=== PATIENT | male | born 1975 | race African-American/Black ===

== ENCOUNTER 2018-08-03 08:21 | Outpatient (CLI) | payer BC | END 2018-08-03 08:22 | disposition home or self-care (01) | LOC: LABBT 08:21 | PROVIDERS: ATTEND Neurological Surgery | DX: Z01.810 Encounter for preprocedural cardiovascular examination (principal); M54.16 Radiculopathy, lumbar region | CPT/HCPCS: 93005; 93010 ==

== ENCOUNTER 2018-08-10 05:49 | Day surgery (SDC) | payer BC ==
[2018-08-03 08:44] VITALS: BMI 26.9
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
[2018-08-10] MEDS ORDERED: Thrombin 5000 UNITS/5 ML VIAL ONE (06:18)
[2018-08-10] MEDS ORDERED: Bupivacaine HCl 0.5%/Epinephrine 1:200,000/PF 30 ml Vial ONE (06:18)
[2018-08-10] MEDS ORDERED: CEFAZOLIN 2 GM/50 ML BAG ONE ×2 (06:25→11:23)
[2018-08-10] MEDS ORDERED: Midazolam HCl 2 mg/2 ml Vial ONE (06:26)
[2018-08-10] MEDS ORDERED: Fentanyl 100 MCG/2 ML VIAL ONE ×3 (06:47→08:52)
[2018-08-10] MEDS ORDERED: SUGAMMADEX SODIUM 200 MG/2 ML VIAL ONE (08:25)
[2018-08-10] MEDS ORDERED: Tamsulosin HCl 0.4 MG CAP ONE (08:28)
[2018-08-10] MEDS ORDERED: Meperidine HCl/PF 25 MG/ML VIAL ONE (08:40)
[2018-08-10] MEDS ORDERED: Glycopyrrolate 0.2 MG/ML 5 ML SYRINGE ONE (09:45)
[2018-08-10] MEDS ORDERED: Dexamethasone 20 MG/5 ML VIAL ONE (09:45)
[2018-08-10] MEDS ORDERED: Ketorolac Tromethamine 30 MG/ML VIAL ONE (09:45)
[2018-08-10] MEDS ORDERED: Ondansetron PF 4 MG/2 ML Vial ONE (09:45)
[2018-08-10] MEDS ORDERED: PROPOFOL 200 MG/20 ML VIAL ONE (09:45)
[2018-08-10] MEDS ORDERED: Lidocaine 1% PF 5 ML VIAL ONE (09:45)
[2018-08-10] MEDS ORDERED: PROVENTIL INHALER 6.7 G (200 INHALATIONS) ONE (09:45)
[2018-08-10] MEDS ORDERED: HYDROcodone/Acetaminophen 5/325 mg Tablet ONE (11:48)
--- NOTE | 2018-08-10 15:41 | OP ---
DATE OF PROCEDURE: 08/10/2018 TIME CYCLE OPERATOR: Leonel David PA-C. INDICATION: Pain. DIAGNOSIS: Bilateral L5 radiculopathies. PROCEDURES: Bilateral L5 hemilaminectomy, medial facetectomies, and foraminotomies. ANESTHESIA: General. TECHNIQUE: The patient was brought into the operating room and placed under general anesthesia. He was flipped from the supine to the prone position on the operating room table. An incision was planned at the L5 segment. After prepping and draping and after a preoperative pause, the incision was created. The soft tissues were swept away from midline. Self-retaining retractors were placed for optimal exposure. After confirming the appropriate level on C-arm fluoroscopy, high speed cutting drill bit as well as 2, 3, and 4 mm Kerrison's were used to perform hemilaminectomies along the inferior aspect of L5 bilaterally. The L5 and S1 pedicles were identified. Foraminotomies were performed of the exiting L5 nerve roots bilaterally. There was more motion at the L5-S1 segment than I had expected. The wound was irrigated. Hemostasis was maintained throughout. The wound was then closed in anatomic layers and a pressure dressing was applied. There were no known procedural complications. Job ID: [id number] [facility]
== END 2018-08-10 12:45 | disposition home or self-care (01) ==
LOC: SDC 05:49
PROVIDERS: ATTEND Neurological Surgery
PROC: 01NB0ZZ Release Lumbar Nerve, Open Approach (ICD-10-PCS; principal; 2018-08-10)
DX: S33.39XA Dislocation of other parts of lumbar spine and pelvis, initial encounter (principal); M48.061 Spinal stenosis, lumbar region without neurogenic claudication; M54.16 Radiculopathy, lumbar region; Z91.013 Allergy to seafood; Z91.041 Radiographic dye allergy status; V89.2XXA Person injured in unspecified motor-vehicle accident, traffic, initial encounter
CPT/HCPCS: 76001; 96374; 96375; J0131; J0670; J1100; J1885; J2001; J2175; J2250; J2405; J2704; J3010

== ENCOUNTER 2018-09-01 17:56 | Emergency (ER) | payer BC, OTHER ==
[2018-09-01 18:39] LABS: #Basophils 0.1 thou/uL (0.0-0.2); #Eosinphils 0.2 thou/uL (0.0-0.7); #Lymphocytes 3.3 thou/uL (1.20-3.40); #Monocytes 0.6 thou/uL (0.11-0.59); %Basophils 1.1 % (0.0-1.0); %Eosinophils 2.7 % (0.0-10.0); %Lymphocytes 46.4 % (21.0-51.0); %Monocytes 7.8 % (0.0-10.0); %Neutrophils 42.1 % (42.0-75.0); Hemoglobin 14.9 g/dL (14.0-18.0); Mean Corpuscular HGB CONC 34.4 g/dL (32.0-36.0); Mean Corpuscular Hemoglobin 33.8 pg (27.0-31.0); Mean Corpuscular Volume 98.3 fL (78.0-98.0); Mean Platelet Volume 7.4 fL (7.4-10.4); Platelet Count 266 thou/uL (130-400); RBC Distribution Width 11.7 % (11.5-14.5); White Blood Cell (WBC) Count 7.1 thou/uL (4.8-10.8)
[2018-09-01 19:02] LABS: ALT (SGPT) 28 U/L (8-55); AST (SGOT) 17 U/L (5-34); Alkaline Phosphatase 92 U/L (40-150); Anion Gap 12 mmol/L (10-20); BUN (Urea Nitrogen) 13 mg/dL (8.9-20.6); Bilirubin, Total 0.2 mg/dL (0.2-1.2); Calc. Creatinine Clearance 0 mL/min (70-130); Calcium 9.2 mg/dL (7.8-10.44); Carbon Dioxide 23 mmol/L (22-29); Chloride 106 mmol/L (98-107); Estimated GFR-MDRD 76; Globulin 3.8 g/dL (2.4-3.5); Glucose 98 mg/dL (70-105); Lipase 35 U/L (8-78); Potassium 4.3 mmol/L (3.5-5.1); Protein, Total 7.8 g/dL (6.0-8.3); Sodium 137 mmol/L (136-145)
[2018-09-01 20:08] LABS: Bilirubin Negative (Negative); Blood, Urine Negative (Negative); Clarity CLEAR (Clear); Glucose, Urine (Dipstick) Negative (Negative); Leukocyte Negative (Negative); Nitrite Negative (Negative); Protein, Urine (Dipstick) Negative (Neg-Trace); Specific Gravity, Urine 1.024 (1.002-1.036); pH, Urine 6.5 (5.0-9.0)
[2018-09-01] MEDS ORDERED: Dexamethasone 10 MG/ML VIAL ONE (20:14)
[2018-09-01] MEDS ORDERED: Ketorolac Tromethamine 60 MG/2 ML VIAL ONE (20:14)
== END 2018-09-01 20:45 | disposition home or self-care (01) ==
LOC: ERS 17:56
DX: M54.5 Low back pain (principal); F17.210 Nicotine dependence, cigarettes, uncomplicated
CPT/HCPCS: 36415; 80053; 81003; 83690; 85025; 96372; J1100; J1885

== ENCOUNTER 2020-01-25 14:56 | Emergency (ER) | payer BC, OTHER, SELFPAY ==
--- NOTE | 2020-01-25 16:10 | RAD ---
Chest 2 views HISTORY: Fever. Weakness. FINDINGS: Cardiac silhouette and pulmonary vasculature are unremarkable. Mediastinum is midline. No confluent airspace consolidation, pneumothorax, or pleural fluid. IMPRESSION : No active cardiopulmonary abnormalities are demonstrated.
[2020-01-25 16:45] LABS: Hemoglobin 17.2 g/dL (14.0-18.0); Mean Corpuscular HGB CONC 32.8 g/dL (32.0-36.0); Mean Corpuscular Hemoglobin 32.8 pg (27.0-31.0); Mean Platelet Volume 7.8 fL (7.4-10.4); Platelet Count 266 thou/uL (130-400); Red Blood Cell (RBC) Count 5.26 mill/uL (4.70-6.10); White Blood Cell (WBC) Count 6.3 thou/uL (4.8-10.8)
[2020-01-25 17:00] LABS: Eosinophils 3 % (0-10); Lymphocytes 52 % (21-51); MDiff Complete? YES; Monocytes 8 % (0-10); Neutrophil 36 % (42-75); Platelet Morphology Comment Appears Adequate; RBC Morphology Normal
[2020-01-25 17:05] LABS: Bilirubin, Total 0.4 mg/dL (0.2-1.2)
[2020-01-25 17:07] LABS: ALT (SGPT) 23 U/L (8-55); AST (SGOT) 13 U/L (5-34); Albumin 4.4 g/dL (3.5-5.0); Alkaline Phosphatase 103 U/L (40-110); Anion Gap 12 mmol/L (10-20); BUN (Urea Nitrogen) 8 mg/dL (8.9-20.6); Calc. Creatinine Clearance 0 mL/min (70-130); Calcium 9.5 mg/dL (7.8-10.44); Carbon Dioxide 28 mmol/L (22-29); Chloride 104 mmol/L (98-107); Estimated GFR-MDRD 72; Globulin 3.4 g/dL (2.4-3.5); Glucose 69 mg/dL (70-105); Lipase 29 U/L (8-78); Potassium 4.2 mmol/L (3.5-5.1); Protein, Total 7.8 g/dL (6.0-8.3); Sodium 140 mmol/L (136-145)
[2020-01-25 17:09] LABS: Bilirubin Negative (Negative); Blood, Urine Trace (Negative); Glucose, Urine (Dipstick) Negative (Negative); Leukocyte Negative (Negative); Nitrite Negative (Negative); Protein, Urine (Dipstick) Negative (Neg-Trace)
[2020-01-25 17:15] LABS: Clarity Clear (Clear)
[2020-01-25 17:19] LABS: Bacteria/HPF None Seen HPF (None Seen); Squamous Epithelial None Seen HPF (0-3); WBC/HPF 0-3 HPF (0-3)
[2020-01-26 10:43] LABS: SARS-CoV-2 MS2 Positive; SARS-CoV-2 N Gene Negative; SARS-CoV-2 S Gene Negative; SARS-CoV-2 orf1ab Negative
--- NOTE | 2020-01-27 12:05 | EKG ---
Test Reason : Blood Pressure : / mmHG Vent. Rate : 089 BPM Atrial Rate : 089 BPM P-R Int : 164 ms QRS Dur : 084 ms QT Int : 358 ms P-R-T Axes : 050 035 050 degrees QTc Int : 435 ms Normal sinus rhythm Possible Left atrial enlargement Borderline ECG When compared with ECG of 03-AUG-2018 09:12, No significant change was found Confirmed by AUBREY WARNER ([id number]), manager editorial ANEL MCKEON ([id number]) on 01/27/2020 12:05:26 PM Referred By: Confirmed By:AUBREY Artis
== END 2020-01-25 18:40 | disposition home or self-care (01) ==
LOC: ERS 14:56
DX: R09.81 Nasal congestion (principal); R05 Cough; E78.00 Pure hypercholesterolemia, unspecified; F17.210 Nicotine dependence, cigarettes, uncomplicated; Z20.828 Contact with and (suspected) exposure to other viral communicable diseases
CPT/HCPCS: 71046; 80053; 81003; 81015; 83690; 84484; 85025; 87635; 93005; 94760; U0003

== ENCOUNTER 2020-12-09 20:23 | Emergency (ER) | payer MEDICARE, OTHER ==
[~2020-12-09 20:23] MED LIST: Iopamidol-370 76% 500 ML 1 ML ONE
[2020-12-09] MEDS ORDERED: Acetaminophen 500 MG TAB ONE ×2 (21:02→21:03)
[2020-12-09 21:10] LABS: Hemoglobin 16.5 g/dL (14.0-18.0); Mean Corpuscular HGB CONC 34.6 g/dL (32.0-36.0); Mean Corpuscular Hemoglobin 34.4 pg (27.0-31.0); Mean Corpuscular Volume 99.4 fL (78.0-98.0); Mean Platelet Volume 7.2 fL (7.4-10.4); Platelet Count 307 thou/uL (130-400); RBC Distribution Width 11.5 % (11.5-14.5); White Blood Cell (WBC) Count 7.8 thou/uL (4.8-10.8)
[2020-12-09 21:25] LABS: Eosinophils 1 % (0-10); Lymphocytes 53 % (21-51); MDiff Complete? YES; Monocytes 8 % (0-10); Neutrophil 37 % (42-75); Reactive Lymphocytes 1 % (0-10)
[2020-12-09 21:26] LABS: Bilirubin Negative (Negative); Blood, Urine Negative (Negative); Clarity Clear (Clear); Glucose, Urine (Dipstick) Normal (Negative); Ketone, Urine Negative (Negative); Leukocyte Negative Leu/uL (Negative); Nitrite Negative (Negative); Protein, Urine (Dipstick) Negative (Neg-Trace); Specific Gravity, Urine 1.011 (1.002-1.036); Urobilinogen Normal mg/dL (Less than 2); pH, Urine 6.5 (5.0-9.0)
[2020-12-09 21:29] LABS: Anion Gap 14 mmol/L (10-20); BUN (Urea Nitrogen) 14 mg/dL (8.9-20.6); Calc. Creatinine Clearance 0 mL/min (70-130); Carbon Dioxide 27 mmol/L (22-29); Chloride 103 mmol/L (98-107); Potassium 4.3 mmol/L (3.5-5.1); Sodium 140 mmol/L (136-145)
[2020-12-09 21:30] LABS: ALT (SGPT) 23 U/L (8-55); AST (SGOT) 17 U/L (5-34); Albumin 4.2 g/dL (3.5-5.0); Alkaline Phosphatase 108 U/L (40-110); Bilirubin, Total 0.2 mg/dL (0.2-1.2); CK (CPK) 124 U/L (30-200); Calcium 9.1 mg/dL (7.8-10.44); Globulin 3.8 g/dL (2.4-3.5); Glucose 82 mg/dL (70-105); Lipase 134 U/L (8-78)
[2020-12-09] MEDS ORDERED: Boostrix 0.5 ML (Tdap) VIAL ONE (22:14)
[2020-12-09] MEDS ORDERED: Ketorolac Tromethamine 30 MG/ML VIAL ONE (22:14)
[2020-12-09] MEDS ORDERED: Morphine 4 MG/ML VIAL ONE (22:52)
[2020-12-09] MEDS ORDERED: Ondansetron PF 4 MG/2 ML Vial ONE (22:52)
== END 2020-12-09 23:50 | disposition home or self-care (01) ==
LOC: ERS 20:23
DX: S16.1XXA Strain of muscle, fascia and tendon at neck level, initial encounter (principal); R41.82 Altered mental status, unspecified; E78.00 Pure hypercholesterolemia, unspecified; F17.210 Nicotine dependence, cigarettes, uncomplicated; V86.99XA Unspecified occupant of other special all-terrain or other off-road motor vehicle injured in nontraffic accident, initial encounter
CPT/HCPCS: 70450; 71045; 71260; 72125; 74177; 80053; 81003; 82550; 83690; 84484; 85025; 90471; 90715; 93005; 96374; 96375; J1885; J2270; J2405; Q9967

== ENCOUNTER 2023-07-06 15:25 | Inpatient (IN) | payer BC, MEDICARE, OTHER ==
[~2023-07-06 15:25] MED LIST changes: -Iopamidol-370 76% 500 ML 1 ML ONE; +Iopamidol-370 76% 500 ML MDV (1 ML CHARGE) ONE
[2023-07-06 15:54] LABS: #Eosinphils 0.2 thou/uL (0.0-0.7); #Monocytes 0.6 thou/uL (0.11-0.59); #Neutrophils 3.7 thou/uL (1.40-6.50); %Basophils 0.5 % (0.0-1.0); %Eosinophils 1.8 % (0.0-10.0); %Lymphocytes 45.9 % (21.0-51.0); %Monocytes 7.3 % (0.0-10.0); Hematocrit 45.1 % (42.0-52.0); Hemoglobin 15.1 g/dL (14.0-18.0); Mean Corpuscular HGB CONC 33.5 g/dL (32.0-36.0); Mean Corpuscular Hemoglobin 32.1 pg (27.0-31.0); Mean Corpuscular Volume 95.8 fl (78.0-98.0); Mean Platelet Volume 9.9 fL (7.4-10.4); Platelet Count 261 10x3/uL (130-400); Red Blood Cell (RBC) Count 4.71 mill/uL (4.70-6.10); White Blood Cell (WBC) Count 8.4 10x3/uL (4.8-10.8)
[2023-07-06 16:10] LABS: PTT 27.2 sec (22.9-36.1)
[2023-07-06 16:22] LABS: Troponin I 0.011 ng/mL (< 0.028)
[2023-07-06 16:24] LABS: ALT (SGPT) 20 U/L (8-55); AST (SGOT) 15 U/L (5-34); Albumin 4.8 g/dL (3.5-5.0); Alkaline Phosphatase 118 U/L (40-110); Anion Gap 14 mmol/L (10-20); BUN (Urea Nitrogen) 9 mg/dL (8.9-20.6); Bilirubin, Total 0.2 mg/dL (0.2-1.2); Calc. Creatinine Clearance 0 mL/min (70-130); Calcium 9.2 mg/dL (7.8-10.44); Carbon Dioxide 22 mmol/L (22-29); Chloride 107 mmol/L (98-107); Estimated GFR 75; Globulin 3.1 g/dL (2.4-3.5); Glucose 99 mg/dL (70-105); Potassium 3.8 mmol/L (3.5-5.1); Protein, Total 7.9 g/dL (6.0-8.3); Sodium 139 mmol/L (136-145)
[2023-07-06] MEDS ORDERED: Acetaminophen 500 MG TAB ONE (16:47)
[2023-07-06 16:50] LABS: Amphetamine Not Detected (NotDetected); Barbiturates Screen Not Detected (NotDetected); Benzodiazepine Screen Not Detected (NotDetected); Cocaine Metabolite Screen Not Detected (NotDetected); Methadone Not Detected (NotDetected); Methamphetamine Not Detected (NotDetected); Opiate Screen Not Detected (NotDetected); Oxycodone Screen Not Detected (NotDetected); Phencyclidine (PCP) Not Detected (NotDetected); THC/Cannabinoid Screen Not Detected (NotDetected); Tricyclic Screen Not Detected (NotDetected)
[2023-07-06 16:57] LABS: Acetaminophen Less than 10 mcg/mL (10.0-30.0); Alcohol Less than 10.0 mg/dL (Less than 10); Salicylate Less than 8.0 mg/dL (15.0-30.0)
[2023-07-06 17:05] LABS: Bacteria/HPF None Seen HPF (None Seen); Bilirubin Negative (Negative); Blood, Urine Negative (Negative); CAUTI Indications for Culture Dysuria,urgency,freq; Clarity Clear (Clear); Glucose, Urine (Dipstick) Normal (Negative); Ketone, Urine Negative (Negative); Leukocyte Negative Leu/uL (Negative); Nitrite Negative (Negative); Protein, Urine (Dipstick) Negative (Neg-Trace); RBC/HPF 0-3 HPF (0-3); Specific Gravity, Urine 1.013 (1.002-1.036); Squamous Epithelial None Seen HPF (0-3); Urobilinogen Normal mg/dL (Less than 2); WBC/HPF None Seen HPF (0-3); pH, Urine 7.5 (5.0-9.0)
[2023-07-06 17:06] LABS: Urine Culture Reflex No No
[2023-07-06] MEDS ORDERED: Aspirin Chewable 81 MG TAB ONE (18:05)
[2023-07-06] MEDS ORDERED: Acetaminophen 325 MG TAB PO PRN (19:48)
[2023-07-06] MEDS ORDERED: Nicotine 14 MG PATCH TD PRN (19:48)
[2023-07-06] MEDS ORDERED: hydrALAZINE 20 MG/ML VIAL SLOW IVP PRN (19:48)
[2023-07-06] MEDS ORDERED: Ondansetron ODT 4 MG TAB PO PRN (19:48)
[2023-07-06] MEDS ORDERED: Famotidine 20 MG TAB ONE (20:35)
[2023-07-06] MEDS: Famotidine 20 MG TAB PO SCH (20:38)
[2023-07-06] MEDS ORDERED: Rosuvastatin 20 MG TAB PO SCH (21:00)
[2023-07-06 22:07] LABS: Hemoglobin A1c 5.8 % (4.0-6.0)
[2023-07-06 23:09] VITALS: BMI 25.9
[2023-07-07] MEDS: Ipratropium/Albuterol 3 ML NEB NEB SCH ×4 (00:20→19:01)
[2023-07-07 05:10] LABS: #Eosinphils 0.2 thou/uL (0.0-0.7); #Monocytes 0.6 thou/uL (0.11-0.59); #Neutrophils 2.7 thou/uL (1.40-6.50); %Basophils 0.4 % (0.0-1.0); %Eosinophils 3.1 % (0.0-10.0); %Lymphocytes 50.8 % (21.0-51.0); %Monocytes 8.7 % (0.0-10.0); %Neutrophils 36.5 % (42.0-75.0); Hematocrit 41.5 % (42.0-52.0); Mean Corpuscular HGB CONC 33.7 g/dL (32.0-36.0); Mean Corpuscular Hemoglobin 32.7 pg (27.0-31.0); Mean Platelet Volume 9.9 fL (7.4-10.4); Platelet Count 240 10x3/uL (130-400); RBC Distribution Width 13.3 % (11.5-14.5); Red Blood Cell (RBC) Count 4.28 mill/uL (4.70-6.10); White Blood Cell (WBC) Count 7.4 10x3/uL (4.8-10.8)
[2023-07-07 05:47] LABS: ALT (SGPT) 18 U/L (8-55); AST (SGOT) 11 U/L (5-34); Albumin 3.9 g/dL (3.5-5.0); Alkaline Phosphatase 102 U/L (40-110); Anion Gap 16 mmol/L (10-20); BUN (Urea Nitrogen) 9 mg/dL (8.9-20.6); Bilirubin, Total 0.3 mg/dL (0.2-1.2); Calc. Creatinine Clearance 97 mL/min (70-130); Calcium 8.8 mg/dL (7.8-10.44); Carbon Dioxide 22 mmol/L (22-29); Cardiac Risk 7.2 (Less than 4.5); Chloride 107 mmol/L (98-107); Cholesterol 172 mg/dl (< 200 Desired); Estimated GFR 77; Globulin 2.8 g/dL (2.4-3.5); Glucose 113 mg/dL (70-105); HDL Cholesterol 24 mg/dL (>60 Neg Risk); LDL Cholesterol, Calculated 85 mg/dL; Potassium 3.8 mmol/L (3.5-5.1); Protein, Total 6.7 g/dL (6.0-8.3); Sodium 141 mmol/L (136-145); Triglycerides 316 mg/dL (Less than 150)
[2023-07-07] MEDS ORDERED: Lorazepam 1 MG TAB PO PRN (06:33)
[2023-07-07] MEDS: Mometasone 100 MCG HFA INHALER (RT USE) INH SCH ×2 (07:45→19:03)
[2023-07-07] MEDS ORDERED: Aspirin 81 mg Enteric Coated Tablet PO SCH (09:00)
[2023-07-07] MEDS ORDERED: dilTIAZem CD 180 MG CAP PO SCH (09:00)
[2023-07-07] MEDS ORDERED: Bupropion 150 MG SR.TAB PO SCH (09:00)
[2023-07-07] MEDS: Famotidine 20 MG TAB PO SCH (09:43)
[2023-07-07] MEDS ORDERED: Clopidogrel Bisulfate 300 MG TAB PO SCH (12:45)
[2023-07-07 16:24] VITALS: BP 138/86; TEMP 98.7
[2023-07-08] MEDS ORDERED: Clopidogrel Bisulfate 75 MG TAB PO SCH (09:00)
== END 2023-07-07 19:26 | disposition home or self-care (01) | DRG 69 ==
LOC: ERS 15:25 → ERHOLD 18:47 → 2SW 23:00
PROVIDERS: ADMIT Family Medicine; ATTEND Family Medicine
DX: G45.9 Transient cerebral ischemic attack, unspecified (principal); I65.23 Occlusion and stenosis of bilateral carotid arteries; R47.81 Slurred speech; R29.898 Other symptoms and signs involving the musculoskeletal system; F32.A Depression, unspecified; E78.00 Pure hypercholesterolemia, unspecified; F17.210 Nicotine dependence, cigarettes, uncomplicated; R00.0 Tachycardia, unspecified; J44.9 Chronic obstructive pulmonary disease, unspecified; Z91.013 Allergy to seafood; Z79.899 Other long term (current) drug therapy; Z88.8 Allergy status to other drugs, medicaments and biological substances; Z71.6 Tobacco abuse counseling; Z83.3 Family history of diabetes mellitus; Z82.49 Family history of ischemic heart disease and other diseases of the circulatory system
CPT/HCPCS: 36415; 36416; 70450; 70496; 70498; 70551; 80053; 80061; 80306; 80307; 81001; 82140; 83036; 84443; 84484; 85025; 85610; 85730; 93005; 93306; 94640; J1650; J7620; Q9967